=== PATIENT | female | born 2000 | race Caucasian/White ===

== ENCOUNTER 2021-01-15 20:20 | Emergency (ER) | payer MEDICAID ==
[~2021-01-15] VITALS: Ht 162.6 cm; Wt 62.6 kg
[2021-01-15] MEDS ORDERED: CIPR5DRO OP ×2 (21:49→21:53)
[2021-01-15 22:00] VITALS: BP 133/88
--- NOTE | 2021-01-15 22:00 | NUR ---
Patient discharged to home in stable condition. Written and verbal after care instructions given. Patient verbalizes understanding of instruction.
--- NOTE | 2021-01-15 22:00 | NUR ---
VISUAL ACUITY TEST DONE MD NOTIFIED.
== END 2021-01-15 22:01 | disposition home or self-care (01) ==
LOC: ER 20:39
DX: O26.93 Pregnancy related conditions, unspecified, third trimester (principal); H10.9 Unspecified conjunctivitis; Z3A.31 31 weeks gestation of pregnancy